=== PATIENT | male | born 1965 | race African-American/Black ===

== ENCOUNTER → 2022-06-25 | Outpatient (CLI) | payer MEDICARE, OTHER ==
[2022-06-25 13:24] LABS: BLOOD UREA NITROGEN 16 MG/DL (9-23); CALCIUM LEVEL 10.7 MG/DL (8.5-10.1); CARBON DIOXIDE LEVEL 32 MMOL/L (20-31); CHLORIDE LEVEL 98 MMOL/L (98-107); CREATININE FOR GFR 1.23 MG/DL (0.70-1.30); GLOMERULAR FILTRATION RATE > 60.0 (>56); GLUCOSE, FASTING 143 MG/DL (60-100); POTASSIUM SERUM 3.5 MMOL/L (3.5-5.1); SODIUM LEVEL 141 MMOL/L (136-145)
[2022-06-25 14:25] LABS: CREATININE, URINE 95.2 MG/DL; MAU/CREAT RATIO 11.5 MCG/MG (0.0-30.0)
== END ==
LOC: M WUC 09:40
PROVIDERS: ATTEND Nurse Practitioner Family
DX: E11.65 Type 2 diabetes mellitus with hyperglycemia (principal)